=== PATIENT | male | born 2000 | race Caucasian/White ===

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

== ENCOUNTER 2020-05-08 16:30 | Emergency (ER) | payer MEDICAID ==
[~2020-05-08] VITALS: Ht 185.4 cm; Wt 75.0 kg
[2020-05-08 16:52] VITALS: BP 109/58
--- NOTE | 2020-05-08 18:00 | NUR ---
NIL FOR VS RECHECK
--- NOTE | 2020-05-08 18:29 | NUR ---
NA X2
--- NOTE | 2020-05-08 18:37 | NUR ---
NA X3
== END 2020-05-08 18:41 | disposition left against medical advice (07) ==
LOC: ED 17:00
DX: M54.5 Low back pain (principal); Z53.21 Procedure and treatment not carried out due to patient leaving prior to being seen by health care provider